=== PATIENT | male | born 2000 | race African-American/Black ===

== ENCOUNTER 2018-03-13 14:20 | Emergency (ER) | payer OTHER ==
[~2018-03-13] VITALS: Ht 177.8 cm; Wt 83.9 kg
[~2018-03-13 14:20] MED LIST: HYDR-971 PO
[2018-03-13 14:42] VITALS: BP 138/78
[2018-03-13] MEDS ORDERED: CYCL10TA2 PO (15:05)
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
== END 2018-03-13 15:27 | disposition home or self-care (01) ==
LOC: ER 14:20
DX: G89.11 Acute pain due to trauma (principal); M54.9 Dorsalgia, unspecified; F12.10 Cannabis abuse, uncomplicated; V43.62XA Car passenger injured in collision with other type car in traffic accident, initial encounter; Y93.89 Activity, other specified; Y92.410 Unspecified street and highway as the place of occurrence of the external cause; Y99.8 Other external cause status
CPT/HCPCS: 99283